=== PATIENT | male | born 1960 | race Caucasian/White ===

== ENCOUNTER 2025-05-30 15:46 | Outpatient (CLI) | payer MEDICARE, SELFPAY ==
--- OUTSIDE RECORDS SUMMARY | 2025-05-30 16:43 | XMS_ITS | Clinical Summary ---
Author Organization [facility] Address [address] [place] [address] Care Team Providers [facility] Worker Name Role Phone Tian Fried MD Primary Care Provider [phone] Allergies No known active allergies Medications triamcinolone 0.1 % creamIndications :Eczema Apply topically 2 (two) times daily. 80 g 1 Active triamcinolone (KENALOG) 0.1 % creamIndications :Eczema, unspecified type Apply topically 2 (two) times daily. 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 12/30/2016 Varicose veins of both lower extremities 013 Eczema 02/03/2013 Mixed hyperlipidemia 02/03/2013 Resolved Problems Problem Noted Date Diagnosed Date Resolved Date Need for shingles vaccine 07/30/2020 Routine general medical exam ination at a health care facility 02/03/2013 10/12/2022 Immunizations Immunization Administration Dates Next Due Flublok (Quadrivalent) 04/22/2021 Influenza Adult (Generic) 04/08/2020,06/06/2018, 06/02/2017 Shingrix 12/09/2020,07/30/2020 Td (Tenivac) preservative free 08/28/1995 Tdap (Generic) 12/30/2016,12/23/2006 Social History Tobacco Use Types Packs/Day Years Used Date Smoking Tobacco: Never Smokeless Tobacco: Never Alcohol Use Standard Drinks/Week Comments Yes 0 (1 standard drink = 0.6 oz pur e alcohol) AUDIT-C Answer Date Recorded Frequency of Alcohol Consumption 2-4 times a mon th 07/18/2019 Average Number of Drinks 1 or 2 020 Frequency of Binge Drinking Not on file 06/29 Sex and Gender Information Value Date Recorded Sex Assigned at Not on file Legal Sex Male 5:22 PM CDT Gender Identity Not on file Sexual Orientation Not on file Occupation Industry Job Start Date Job End Date [employer] Not on file Not on file Not on sandra e Last Filed Vital Signs Vital Sign Reading Time Taken Comments Blood Pressure 126/72 10/08/2022 11:07 AM CDT Pulse 58 10/08/2022 11:07 AM CDT Temperature - - Respiratory Rate - - Oxygen Saturation - - Inhaled Oxygen Concentration - - Weight 77.1 kg (170 lb) 10/08/2022 11:07 AM CDT Height 177.8 cm (5' 10) 10/08/2022 11:07 AM CDT Body Mass Index 24.39 10/08/2022 11:07 AM CDT Plan of Treatment Health Maintenance Due Date Last Done Comments Hepatitis C 1976 Pneumococcal Vaccine: 50+ Years (1 of 1 - PCV) 2008 COVID-19 Vaccine ( - 2024- season) 2025 Influenza Adult (#1) 2025 04/22/2021, 04/08/2020, 06/06/2018, Additional history exists DTaP, Tdap and Td Vaccines (3 - Td or Tdap) 12/30/2026 12/30/2016, 12/23/2006, 08/28/1995 Colorectal Cancer Screening Colonoscopy (10 Years) 12/27/2030 12/27/2020, 06/28/2015 RSV Immunization or 60+ Years (1 - 1-dose 75+ series) 2033 Zoster Vaccines Completed 12/09/2020, 07/30/2020 Hepatitis A Vaccines Aged Out No long er eligible based on patient's age to complete this topic Meningococcal B Vaccine Aged Out No l onger eligible based on patient's age to complete this topic Meningococcal Vaccine Aged Out No harman cornell eligible based on patient's age to complete this topic RSV Immunizations Under 20 Months Aged Out No longer eligible based on patient's age to complete this topic Procedures Procedure Name Priority Date/Time Associated Diagnosis Comments COLONOSCOPY GENERIC (SCAN ORDER) Routine 12/27/2020 from Last 3 Months or Most Recently Relevant to Health Maintenance Results * COLONOSCOPY (12/27/2020) us Tian Fried MD SCANNING Final Resul t [facility] from Last 3 Months or Most Recently Relevant to Health Maintenance Insurance [facility] Care Teams [facility] Work[facility] Relationship Specialty Start Date End Date Tian Fried MD [address] [id number] PCP - General 09/30/15
[2025-05-31 09:08] LABS: PSA, Free 0.75 ng/mL
== END 2025-05-30 15:47 | disposition home or self-care (01) ==
PROVIDERS: PCP Family Medicine; Visit Provider Family Medicine
DX: R97.20 Elevated prostate specific antigen [PSA] (principal)
CPT/HCPCS: 84153; 84154